=== PATIENT | male | born 1975 ===

== ENCOUNTER → 2020-03-23 | Emergency (ER) | payer SELFPAY ==
[~2020-03-23] VITALS: Ht 180.3 cm; Wt 88.5 kg
[2020-03-23 15:13] VITALS: BP 163/84
== END | disposition home or self-care (01) ==
LOC: ER 15:10
DX: S63.92XA Sprain of unspecified part of left wrist and hand, initial encounter (principal); W18.09XA Striking against other object with subsequent fall, initial encounter; Y93.89 Activity, other specified; Y92.89 Other specified places as the place of occurrence of the external cause; Y99.8 Other external cause status; F17.210 Nicotine dependence, cigarettes, uncomplicated
CPT/HCPCS: 73130